=== PATIENT | female | born 1985 | race Caucasian/White ===

== ENCOUNTER 2018-01-02 23:55 | Emergency (ER) | payer OTHER ==
[~2018-01-02] VITALS: Ht 172.7 cm; Wt 58.1 kg
[2018-01-03] MEDS ORDERED: ANTIBIOTIC PO (00:02)
[2018-01-03 00:27] LABS: URINE BILIRUBIN NEGATIVE (Negative); URINE BLOOD 2+ (Negative); URINE CLARITY CLOUDY; URINE GLUCOSE-RANDOM* NEGATIVE (Negative); URINE KETONES NEGATIVE (Negative); URINE NITRITE-REFLEX NEGATIVE (Negative); URINE PROTEIN (DIPSTICK) NEGATIVE (Negative); URINE SPECIFIC GRAVITY <= 1.005 (1.005-1.035); URINE UROBILINOGEN 0.2 E.U./dl (0.2-1.0)
[2018-01-03 00:31] LABS: URINE LEUKOCYTES-REFLEX 3+ (Negative)
[2018-01-03 00:32] LABS: URINE COLOR COLORLESS
[2018-01-03 00:41] LABS: HEMOGLOBIN 13.3 gm/dL (12.0-15.0); MCH 30.3 pg (26.0-34.0); MCV 86.4 fL (80.0-100.0); RBC 4.39 mil/uL (4.20-5.00); RDW 12.6 % (10.5-14.5); WBC 11.5 thou/uL (4.0-11.0)
[2018-01-03 00:42] LABS: SQUAMOUS 0-3 Few /LPF (0-3); URINE WBC-REFLEX >25 Many /HPF (0-5)
[2018-01-03 00:43] LABS: CASTS None Seen /LPF (None Seen); CRYSTALS None Seen /LPF (None Seen); URINE RBC 0-2 Rare /HPF (0-2)
[2018-01-03 00:49] LABS: CALCIUM 8.6 mg/dL (8.5-10.1); POTASSIUM 3.3 mmol/L (3.5-5.1)
== END 2018-01-03 01:13 | disposition home or self-care (01) ==
LOC: ER 23:55
PROVIDERS: Emergency Medicine
DX: N12 Tubulo-interstitial nephritis, not specified as acute or chronic (principal)